=== PATIENT | female | born 1955 | race Caucasian/White ===

== ENCOUNTER 2019-03-17 18:19 | Emergency (ER) | payer MEDICAID ==
[~2019-03-17] VITALS: Ht 157.5 cm; Wt 86.2 kg
[2019-03-17 18:45] VITALS: BP_SYST 146
--- NOTE | 2019-03-17 22:35 | NUR ---
Patient to [facility] for evaluation. Side rails up.
--- NOTE | 2019-03-17 22:45 | NUR ---
Patient brought in complaining of bilateral hip pain starting this afternoon. Pain 10/10. Patient complaing that she cannot stand up from chair. Denies any trauma. No other complaints/injuries per patient or as noted. Will continue to monitor.
--- NOTE | 2019-03-17 23:00 | NUR ---
Dr. Cho at bedside to evaluate pt.
[2019-03-17] MEDS ORDERED: KETOROLAC TROMETHAMINE 60 MG/2 ML VIAL IM ONE (23:15)
[2019-03-18 00:22] VITALS: BP_SYST 138
--- NOTE | 2019-03-18 00:22 | NUR ---
Patient given written and verbal discharge instructions and verbalizes understanding. ER MD discussed with patient the results and treatment provided. Patient in stable condition. ID arm band removed. Rx of Tylenol with Codeine and Ibuprofen given. Patient educated on pain management and to follow up with PMD. Pain Scale 0/10 Opportunity for questions provided and answered. Medication side effect fact sheet provided.
== END 2019-03-18 00:22 | disposition home or self-care (01) ==
LOC: SED 18:19
DX: M25.551 Pain in right hip (principal); M25.552 Pain in left hip; I10 Essential (primary) hypertension
CPT/HCPCS: 72170; 96372; 99283; J1885; 93005